=== PATIENT | female | born 1990 | race Caucasian/White ===

== ENCOUNTER 2016-07-08 23:20 | Emergency (ER) | payer OTHER ==
[2016-07-08 23:41] VITALS: BP 111/69; PULSE 74; TEMP 98; BMI 41.5
--- NOTE | 2016-07-09 00:33 | PDOC ---
History of Present Illness - General History Source: Patient Exam Limitations: No Limitations - History of Present Illness Initial Comments: 07/09/16 00:34 The patient is a 25 year old female with no significant past medical history who presents to the ED with 1 day of frequency, urgency, and dysuria. She denies hematuria. She also has complaints of pelvic pain and lower back pain. She denies nausea, vomiting, and diarrhea. The patient denies fever, chills, cough, SOB, chest pain, and palpitations. PCP: Dr. Camilo Powell <Salome Chang - Last Filed: 07/09/16 00:34> - General History Source: Patient <Frantz Yepez - Last Filed: 07/09/16 01:11> - General Chief Complaint: Urinary Problem Stated Complaint: BACK PAIN Time Seen by Provider: 07/09/16 00:24 Past History <Salome Chang - Last Filed: 07/09/16 00:34> - Past Medical History Asthma: Yes Suicide Attempt (Hx): No - Surgical History Cholecystectomy: Yes - Psycho/Social/Smoking Cessation Hx Anxiety: No Suicidal Ideation: No Smoking History: Never smoked Have you smoked in the past 12 months: Yes Number of Cigarettes Smoked Daily: 0 If you are a former smoker, when did you quit?: 1 1/2 years a go Information on smoking cessation initiated: No 'Breaking Loose' booklet given: 02/06/14 Hx Alcohol Use: No Drug/Substance Use Hx: No Substance Use Type: None <Frantz Yepez - Last Filed: 07/09/16 01:11> - Past Medical History Allergies/Adverse Reactions: Allergies Allergy/AdvReac Type Severity Reaction Status Date / Time No Known Allergies Allergy Verified 07/08/16 23:33 Home Medications: Ambulatory Orders Albuterol Sulfate Inhaler - [Ventolin Hfa Inhaler -] 1 - 2 inh PO Q4H 07/08/16 Tiotropium [place] [Spiriva] 1 inh PO DAILY 07/08/16 Ibuprofen 800 mg PO TID #30 tablet 07/09/16 Levofloxacin [Levaquin -] 500 mg PO DAILY #7 tablet 07/09/16 Phenazopyridine HCl [Pyridium -] 100 mg PO PC #6 tablet 07/09/16 Review of Systems - Review of Systems Able to Perform ROS?: Yes Comments:: 07/09/16 00:35 CONSTITUTIONAL: Absent: fever, no chills, no fatigue EYES: Absent: visual changes ENT: Absent: ear pain, no sore throat CARDIOVASCULAR: Absent: chest pain, no palpitations RESPIRATORY: Absent: cough, no SOB GI: +pelvic pain Absent: no nausea, no vomiting, no constipation, no diarrhea GENITOURINARY: +dysuria, urgency, frequency, Absent: hematuria MUSKULOSKELETAL: +lower back pain Absent: no arthralgia, no myalgia SKIN: Absent: rash NEURO: Absent: headache <BernardoSalome - Last Filed: 07/09/16 00:34> *Physical Exam - Vital Signs Last Vital Signs Temp Pulse Resp BP Pulse Ox 98.0 F 74 14 111/69 100 07/08/16 23:34 07/08/16 23:34 07/08/16 23:34 07/08/16 23:34 07/08/16 23:34 - Physical Exam Comments: 07/09/16 00:35 GENERAL: Well-appearing, well-nourished. No apparent distress. HEENT: Normocephalic, atraumatic. PERRL, EOM intact. CARDIOVASCULAR: Normal S1, S2. Regular rate and rhythm. PULMONARY: Clear to auscultation bilaterally. ABDOMEN: Soft, non-distended, non-tender. EXTREMITIES: Normal ROM in all four extremities. No gross deformities. SKIN: Warm, dry. No rash NEUROLOGICAL: No focal neurological deficits. <Salome Chang - Last Filed: 07/09/16 00:34> - Vital Signs Last Vital Signs Temp Pulse Resp BP Pulse Ox 98.0 F 74 14 111/69 100 07/08/16 23:34 07/08/16 23:34 07/08/16 23:34 07/08/16 23:34 07/08/16 23:34 <Frantz Yepez - Last Filed: 07/09/16 01:11> Medical Decision Making - Medical Decision Making 07/09/16 01:09 Dr. Yepez: The scribe's documentation has been prepared under my direction and personally reviewed by me in its entirery. I confirm that the note above accurately reflects all work, treatment, procedures, and medical decision making performed by me. <Frantz Yepez - Last Filed: 07/09/16 01:11> *DC/Admit/Observation/Transfer - Attestations Scribe Attestion: 07/09/16 00:35 Documentation prepared by Salome Chang, acting as center medical director for Frantz Yepez MD <Salome Chang - Last Filed: 07/09/16 00:34> - Discharge Dispostion Admit: No <Frantz Yepez - Last Filed: 07/09/16 01:11> Diagnosis at time of Disposition: UTI (urinary tract infection) Qualifiers: Urinary tract infection type: site unspecified Hematuria presence: without hematuria Qualified Code(s): N39.0 - Urinary tract infection, site not specified - Discharge Dispostion Disposition: HOME Condition at time of disposition: Stable - Prescriptions Prescriptions: Ibuprofen 800 mg PO TID #30 tablet Levofloxacin [Levaquin -] 500 mg PO DAILY #7 tablet Phenazopyridine HCl [Pyridium -] 100 mg PO PC #6 tablet - Referrals Referrals: Camilo Powell [Primary Care Provider] - - Patient Instructions Printed Discharge Instructions: DI for Urinary Tract Infection (UTI) - Post Discharge Activity Work/School Note: Back to Work
[2016-07-09 00:49] LABS: URINE APPEARANCE SLCLOUDY; URINE BILIRUBIN NEGATIVE (NEGATIVE); URINE COLOR YELLOW; URINE GLUCOSE (UA) NEGATIVE (NEGATIVE); URINE KETONE NEGATIVE (NEGATIVE); URINE NITRITE POSITIVE (NEGATIVE); URINE PROTEIN NEGATIVE (NEGATIVE); URINE UROBILINOGEN NEGATIVE E.U./dl (0.2-1.0)
[2016-07-09 00:56] LABS: URINE BLOOD 1+ (NEGATIVE); URINE LEUK ESTERASE TRACE (NEGATIVE)
[2016-07-09] MEDS ORDERED: LEVOFLOXACIN 500 MG TABLET (FP) PO ONE (01:06)
[2016-07-09] MEDS ORDERED: IBUPROFEN 400 MG TABLET (FP) PO ONE ×2 (01:06→01:15)
[2016-07-09] MEDS ORDERED: PHENAZOPYRIDINE HCL 100 MG TABLET (FP) PO ONE (01:06)
[2016-07-09] MEDS ORDERED: LEVOFLOXACIN 500 MG TABLET (FP) ONE (01:14)
[2016-07-09] MEDS ORDERED: PHENAZOPYRIDINE HCL 100 MG TABLET (FP) ONE (01:14)
[2016-07-09 01:15] LABS: URINE MUCUS RARE; URINE RBC <1 /hpf (0-3); URINE WBC 2 /hpf (3-5)
== END 2016-07-09 01:21 | disposition home or self-care (01) ==
LOC: JER 23:20
DX: N39.0 Urinary tract infection, site not specified (principal); J45.909 Unspecified asthma, uncomplicated
CPT/HCPCS: 81003; 81015; 84703; 87086; 87186; 99282-25

== ENCOUNTER 2018-02-11 13:29 | Emergency (ER) | payer OTHER ==
[2018-02-11 14:11] VITALS: BP 122/69; PULSE 73; TEMP 98.4; BMI 37.0
--- NOTE | 2018-02-11 15:12 | PDOC ---
History of Present Illness - General Chief Complaint: Migraine Headache Stated Complaint: MENINGITIS Time Seen by Provider: 02/11/18 14:38 History Source: Patient Exam Limitations: Clinical Condition - History of Present Illness Initial Comments: 02/11/18 15:07 Patient with history of migraine present for evaluation status post exposure to family member with diagnoses of meningitis. Patient denies any nausea or vomiting, neck pain, dizziness, or photophobia. she denies any other symptoms Past History - Past Medical History Allergies/Adverse Reactions: Allergies Allergy/AdvReac Type Severity Reaction Status Date / Time No Known Allergies Allergy Verified 02/11/18 14:05 Home Medications: Ambulatory Orders NK [No Known Home Medication] 02/11/18 Asthma: Yes COPD: No Other medical history: MIGRANES - Surgical History Cholecystectomy: Yes - Suicide/Smoking/Psychosocial Hx Smoking History: Current every day smoker Have you smoked in the past 12 months: Yes Number of Cigarettes Smoked Daily: 6 If you are a former smoker, when did you quit?: 1 1/2 years a go Information on smoking cessation initiated: No 'Breaking Loose' booklet given: 02/06/14 Hx Alcohol Use: No Drug/Substance Use Hx: No Substance Use Type: None Review of Systems - Review of Systems Able to Perform ROS?: Yes Is the patient limited Citizen Of [place] proficient: No Constitutional: No: Chills, Diaphoresis, Fever, Loss of Appetite, Malaise, Night Sweats, Weakness, Weight Stable, Unintentional Wgt. Loss, Unexplained wgt Loss, Other HEENTM: No: Eye Pain, Blurred Vision, Tearing, Recent change in vision, Double Vision, Cataracts, Ear Pain, Ocular Prothesis, Ear Discharge, Nose Pain, Nose Congestion, Tinnitus, Nose Bleeding, Hearing Loss, Throat Pain, Throat Swelling , Mouth Pain, Dental Problems, Difficulty Swallowing, Mouth Swelling, Other Respiratory: No: Cough, Orthopnea, Shortness of Breath, SOB with Exertion, SOB at Rest, Stridor, Wheezing, Productive cough, Hemoptysis, Other Cardiac (ROS): No: Chest Pain, Edema, Irregular Heart Rate, Lightheadedness, Palpitations, Syncope, Chest Tightness, Other ABD/GI: No: Abdominal Distended, Abd. Pain w/ defecation, Blood Streaked Bowels , Constipated, Diarrhea, Difficulty Swallowing, Nausea, Poor Appetite, Poor Fluid Intake, Rectal Bleeding, Vomiting, Indigestion, Abdominal cramping, Tarry Stools, Other Musculoskeletal: No: Back Pain, Gout, Joint Pain, Joint Swelling, Muscle Pain, Muscle Weakness, Neck Pain, Joint Stiffness, Other Integumentary: No: Bruising, Change in Color, Change in Hair/Nails, Dryness, Erythema, Flushing, Lesions, Lumps, Pallor, Pruritus, Rash, Sweating, Other Neurological: Yes: Headache (mild). No: Numbness, Paresthesia, Pre-Existing Deficit, Seizure, Tingling, Tremors, Weakness, Unsteady Gait, Ataxia, Dizziness , Other All Other Systems: Reviewed and Negative *Physical Exam - Vital Signs Last Vital Signs Temp Pulse Resp BP Pulse Ox 98.4 F 73 16 122/69 100 02/11/18 14:05 02/11/18 14:05 02/11/18 14:05 02/11/18 14:05 02/11/18 14:05 - Physical Exam Comments: 02/11/18 15:09 GENERAL: Well developed, well nourished. Awake and alert. No acute distress. HEENT: Normocephalic, atraumatic. PERRLA, EOMI. No conjunctival pallor. Sclera are non- icteric. Moist mucous membranes. Oropharynx is clear. NECK: Supple. Full ROM. No JVD. Carotid pulses 2+ and symmetric, without bruits. No thyromegaly. No lymphadenopathy. CARDIOVASCULAR: Regular rate and rhythm. No murmurs, rubs, or gallops. Distal pulses are 2+ and symmetric. PULMONARY: No evidence of respiratory distress. Lungs clear to auscultation bilaterally. No wheezing, rales or rhonchi. ABDOMINAL: Soft. Non-tender. Non-distended. No rebound or guarding. No organomegaly. Normoactive bowel sounds. MUSCULOSKELETAL Normal range of motion at all joints. No bony deformities or tenderness. No CVA tenderness. EXTREMITIES: No cyanosis. No clubbing. No edema. No calf tenderness. SKIN: Warm and dry. Normal capillary refill. No rashes. No jaundice. NEUROLOGICAL: Alert, awake, appropriate. Cranial nerves 2-12 intact. No deficits to light touch and temperature in face, upper extremities and lower extremities. No motor deficits in the in face, upper extremities and lower extremities. Normoreflexic in the upper and lower extremities. Normal speech. Toes are down- going bilaterally. Gait is normal without ataxia. PSYCHIATRIC: Cooperative. Good eye contact. Appropriate mood and affect. General Appearance: Yes: Nourished, Appropriately Dressed. No: Apparent Distress Medical Decision Making - Medical Decision Making 02/11/18 15:10 Patient with history of migraines present for evaluation status post exposure to family member with diagnosis of meningitis. Patient denies any signs of meningitis symptoms. Clinical exam shows normal neuro exam with no evidence of meningeal signs. Patient stable for home discharge with advice to continue taking home migraine medication with strict follow-up *DC/Admit/Observation/Transfer Diagnosis at time of Disposition: Meningitis exposure Migraine Qualifiers: Migraine type: without aura Status migrainosus presence: without status migrainosus Intractability: not intractable Qualified Code(s): G43.009 - Migraine without aura, not intractable, without status migrainosus - Discharge Dispostion Disposition: HOME Condition at time of disposition: Stable - Referrals Referrals: Camilo Powell [Primary Care Provider] - - Patient Instructions Additional Instructions: Take home migraine medication as needed as prescribed. Come back to emergency room if severe headache, nausea, vomiting or severe dizziness - Post Discharge Activity
== END 2018-02-11 16:30 | disposition home or self-care (01) ==
LOC: JERFT 13:29
DX: Z20.811 Contact with and (suspected) exposure to meningococcus (principal); F17.210 Nicotine dependence, cigarettes, uncomplicated; J45.909 Unspecified asthma, uncomplicated
CPT/HCPCS: 99281-25